=== PATIENT | male | born 1955 | race Caucasian/White ===

== ENCOUNTER → 2018-11-23 06:50 | Outpatient (CLI) | payer BC, SELFPAY ==
--- NOTE | 2018-11-23 06:54 | NM_ITS ---
CARDIOLITE SPECT MYOCARDIAL PERFUSION LEXISCAN, REST AND STRESS: [facility] REVIEW QGS EF AND WALL MOTION EVALUATION: QPS - PERFUSION EVALUATION HISTORY: SOB, HTN, DM, CAD, Hx of NC, Fatigue, Family history DOSE: 9.89 mCi technetium 99m mibi intravenously at rest followed by 32.7 mCi technetium 99m mibi following the intravenous ministration of 0.4 mg of Lexiscan. Resting blood pressure is 189/93. Stress blood pressure 159/85. FINDINGS: Ejection fraction is calculated to be 43%. Next images reveal severely decreased activity throughout the entire lateral wall inferior wall with diminished activity in the anterior wall. Rest images reveal improved activity in the inferior wall and a portion of the apical lateral wall. Gated images calculated ejection fraction of 43% with lateral wall hypokinesis inferior wall hypokinesis apical hypokinesis. IMPRESSION: High risk Myoview suggesting multivessel coronary artery disease with accompanying regional wall motion abnormality as described above
--- NOTE | 2018-11-23 07:41 | HMH.ITSHM ---
Current Home Medications as stated by this patient Rafiq Montesinos or client relations representative. []LEVOFLOXACIN INSULIN GUAIFENESIN VITMAIN D3 CARVEDILOL VITAMIN C ROPINIROLE LOSARTAN LORATADINE IMDUR FUROSEMIDE BENZONATATE ATORVASTATIN ASA ALLOPURINOL
== END ==
PROVIDERS: Visit Provider Physician Assistant
DX: E78.5 Hyperlipidemia, unspecified (principal); I11.9 Hypertensive heart disease without heart failure; I25.10 Atherosclerotic heart disease of native coronary artery without angina pectoris; R06.02 Shortness of breath; R74.8 Abnormal levels of other serum enzymes
CPT/HCPCS: 78452; 93017; A9502; J2785

== ENCOUNTER → 2019-04-25 12:15 | Outpatient (CLI) | payer BC, SELFPAY ==
--- NOTE | 2019-04-25 12:17 | US_ITS ---
APPROVED REPORT Exam Type: Lower Extremity Segmental Pressures Shoe Lay Out Planner: Belkys Alexander RDCS Indications Claudication: Non-healing Ulcer: Rest Pain: Risk Factors Hypertension CAD Hyperlipidemia TIA/CVA History Diabetes History of Smoking Pressures/Indices Right Indices Left Indices Brachial 205.00 mmHg Brachial 235.00 mmHg Low Thigh 230.00 mmHg 0.98 Low Thigh 213.00 mmHg 0.91 Calf 222.00 mmHg 0.94 Calf 247.00 mmHg 1.05 Ankle(PT) 191.00 mmHg 0.81 Ankle(PT) 197.00 mmHg 0.84 Ankle(DP) 222.00 mmHg 0.94 Ankle(DP) 103.00 mmHg 0.44 Digit 166.00 mmHg 0.71 Digit 154.00 mmHg 0.66 Findings R DAVID .8 L DAVID .8 R TBI .7 L TBI .7 PRESSURES REFLECTIVE OF DIABETIC PATIENT Conclusion Mild arterial disease Electronically signed by : Dylon Cristobal MD 04/27/2019 19:51:46
== END ==
PROVIDERS: Visit Provider Internal Medicine
DX: L97.519 Non-pressure chronic ulcer of other part of right foot with unspecified severity (principal)
CPT/HCPCS: 93923

== ENCOUNTER → 2020-11-14 09:08 | Outpatient (CLI) | payer BC, MEDICARE, SELFPAY ==
--- NOTE | 2020-11-14 | CA_ITS ---
APPROVED REPORT EXAM: Comprehensive 2D, Doppler, and color-flow Echocardiogram Food Service Tray Attendant: Tabatha Rojas RT(R) Ht: 5 ft 8 in Wt: 197lbs BSA: 2.03 BP: 152/88 mmHg Indications: SOB, CAD, CKD, COPD, DM, hyperlipidemia, CHF, hx [place] 2D Dimensions LVOT 2.01 cm (M/F) 1.5-2.5 LVEF (Wang's) 41.60 % M: 52 - 72 LV Volume 128.10 mL M: 62 - 150 LV Volume Index 63.10 mL/m2 M: 34 - 74 LA Volume 38.90 mL LA Volume Index 19.16 mL/m2 (M/F) 16-34 M-Mode Dimensions RVDd 2.24 cm (0.9-2.6) LA Diam 3.79 cm (1.9-4.0) LVDd 5.01 cm (3.5-5.7) Ao Diam 2.46 cm (2.0-3.7) LVDs 4.49 cm (3.5-5.7) IVSd 0.88 cm (0.6-1.1) PWd 0.84 cm (0.6-1.1) EF (Teich) 22.60% FS 10.40% EDV (Teich) 118.80 mL ESV (Teich) 92.00 mL LV Diastology E Decel Time 143.00 (160-240 msec) E/A Ratio 2.7 MED E' 4.70 (< 7 cm/sec) E'/MED E' Ratio 26.64 (>14) LAT E' 5.20 (<10 cm/sec) E/LAT E' Ratio 24.08 (>14) Aortic Valve LVOT Max 92.00 (70-110 cm/s) LVOT VTI 17.48 cm AoV Peak Esequiel. 150.00 (50-130 cm/s) AO Peak GR. 9.00 mmHg AO Mean GR. 4.40 (<5 mmHg) AO VTI 24.00 (18-25 cm) JOYCE (VTI) 2.31 (2.5-4.5 cm2) Mitral Valve MV E Max Esequiel. 125.00 (40-130 cm/s) MV A Velocity 47.00 (40-130 cm/s) E/A Ratio 2.66 MV Decel. Time 143.00 (160-240 ms) MV PHT 42.00 ms Left Ventricle Technically difficult study because of the patient factors and poor acoustic windows. Left atrium is mildly enlarged, left ventricle is normal size, mild ventricular hypertrophy, visually estimated ejection fraction 40 to 45%, left ventricle is globally hypokinetic. Endocardial surfaces are poorly visualized. Grade 2 diastolic dysfunction seen with tissue Doppler evidence of raise left atrial pressure. Right Ventricle Right atrium and right ventricle are mildly enlarged with normal contractility. Aortic Valve Aortic valve is thickened and calcified without Doppler evidence of aortic stenosis or aortic insufficiency. Mitral Valve Mitral valve leaflets are minimally thickened, there is mild mitral regurgitation. Tricuspid Valve Tricuspid valve grossly normal, there is mild tricuspid regurgitation, tricuspid regurgitation jet velocity is inadequate for calculation of the right ventricular systolic pressure. Pulmonic Valve Pulmonic valve is poorly visualized. Great Vessels Aortic root is normal size. Pericardium No significant pericardial effusion noted. Conclusion 1. Technically difficult study because of the patient factors and poor acoustic windows. Mild biatrial abdomen, normal left ventricular size, mild concentric left ventricular hypertrophy, visually estimated ejection fraction 40 to 45%, grade 2 diastolic dysfunction seen with tissue Doppler evidence of raise left atrial pressure. 2. Thickened and calcified aortic valve without Doppler evidence of aortic stenosis or aortic insufficiency. 3. Mild mitral and tricuspid regurgitation. 4. No significant pericardial effusion noted. Electronically signed by : Hima Daniels, 11/15/2020 15:20:12
== END ==
PROVIDERS: PCP Nurse Practitioner Family; Visit Provider Nurse Practitioner Family
DX: R06.02 Shortness of breath (principal)
CPT/HCPCS: 93306

== ENCOUNTER → 2021-03-26 16:03 | Outpatient (CLI) | payer BC, SELFPAY ==
[2021-03-26 16:58] LABS: Basophils % 0.4 % (0.1-2.0); Eosinophils # 0.1 K/mm3 (0.0-0.4); Eosinophils % 1.2 % (0.1-12.0); Hematocrit 40.4 % (42.0-52.0); Hemoglobin 12.6 g/dL (14.1-18.0); Lymphocytes % 9.5 % (10-50); Mean Corpuscular HGB Conc 31.1 g/dL (31.8-35.4); Mean Corpuscular Hemoglobin 24.8 pg (27.0-31.2); Mean Corpuscular Volume 79.7 fl (80-94); Mean Platelet Volume 7.1 fl (7.4-10.4); Monocytes # 0.6 K/mm3 (0.1-1.0); Monocytes % 5.7 % (1.7-9.3); Neutrophils # 8.3 K/mm3 (1.8-7.8); Neutrophils % 83.1 % (37.0-80.0); Platelet Count 258 K/mm3 (142-424); Red Blood Count 5.07 M/mm3 (4.60-6.20); Red Cell Distribution Width 16.9 % (11.5-17.5)
[2021-03-26 18:48] LABS: Anion Gap 18.2 mEq/L (5-15); Calcium 7.9 mg/dl (8.4-10.2); Carbon Dioxide 25 mmol/L (22.0-30.0); Chloride 99 mmol/L (98-107); Estimated Glomerular Filt Rate 14 ml/min (>60); GFR (African American) 17 ML/MIN (>60); Glucose 249 mg/dl (74-100); Potassium 5.2 mmoL/L (3.5-5.1); Sodium 137 mmol/L (136-145)
[2021-03-26 18:59] LABS: Blood Urea Nitrogen 78 mg/dl (9-20)
== END ==
PROVIDERS: Urology; Visit Provider Internal Medicine
DX: Z01.812 Encounter for preprocedural laboratory examination (principal); Z20.822 Contact with and (suspected) exposure to COVID-19; R06.02 Shortness of breath; R07.9 Chest pain, unspecified; I25.10 Atherosclerotic heart disease of native coronary artery without angina pectoris; I11.9 Hypertensive heart disease without heart failure; I42.9 Cardiomyopathy, unspecified; I50.9 Heart failure, unspecified; E11.9 Type 2 diabetes mellitus without complications; E78.5 Hyperlipidemia, unspecified; J44.9 Chronic obstructive pulmonary disease, unspecified; N18.9 Chronic kidney disease, unspecified; Z79.4 Long term (current) use of insulin
CPT/HCPCS: 36415; 80048; 85025; U0003

== ENCOUNTER 2021-03-27 09:35 | Day surgery (SDC) | payer BC, SELFPAY ==
[2021-03-27] VITALS (14 sets, daily range): BP systolic 121–195; BP diastolic 60–100; PULSE 63–82; RESP 13–18; TEMP 36.8; O2SAT 90–98; BMI 30.4
--- NOTE | 2021-03-27 | IR_ITS ---
APPROVED REPORT Patient Location: Outpatient Commanding Officer Traffic Division: HELEN Aceves RT (R) PROCEDURES Right heart catheterization Left heart catheterization Left ventriculogram Selective coronary angiogram INDICATION Chronic renal failure, History of hemodialysis, Worsening dyspnea, Worsening angina pectoris, Known coronary artery disease, Pulmonary hypertension Informed consent was obtained prior to the procedure. COMPLICATIONS NONE Estimated Blood Loss: LESS THAN 10 ML TECHNIQUE One percent lidocaine was used to anesthetize the right anterior aspect of the right wrist. The right radial artery was accessed via the Seldinger technique and a 6 [place] hydrophilic sheath was placed in the right radial artery. Following this one percent lidocaine was used to anesthetize the right anterior aspect of the right neck. The right internal jugular vein was accessed via the Seldinger technique and a 7 [place] sheath was placed in the right internal jugular vein. Following this an arterial cocktail was administered using 5000U heparin, 2.5 mg verapamil, 1mg Lidocaine and 800mcg nitroglycerin into the right radial sheath. A trap catheter was used to perform left heart catheterization left ventriculogram and selective coronary angiography while a Cantil-Mykel catheter was used to perform right heart catheterization. Saturations were obtained in the pulmonary artery and right atrium. At the end of the procedure the arterial sheath was removed good hemostasis was achieved using Traclet band. Patient was transferred to the postop holding area in stable condition for venous sheath removal. ANGIOGRAPHIC RESULTS The left main artery Normal The left anterior descending artery Is widely patent in the ostial segment extending into the large first diagonal artery. In between the first diagonal artery and first septal marketing professional the LAD does narrow which is smooth and a 40% stenosis. The remaining LAD opens into a large caliber vessel which then wraps the apex. The first diagonal artery is also a large vessel and is widely patent with smooth proximal 20% stenosis The circumflex artery Is a nondominant vessel and has a stent in the proximal to mid segment. In the midportion of the circumflex artery the vessel was subtotally occluded The right coronary artery Is a dominant vessel and has proximal to mid vessel 30% diffuse smooth stenoses. The posterior descending artery is less than 2 mm in diameter and has mid vessel 60 and 70% concentric stenoses. The posterior lateral branch is a larger vessel and has a mid vessel 50% stenosis in an area less than 2 mm The COTA ventriculogram reveals Slightly dilated ejection fraction 50% The left ventricular end-diastolic pressure 32 mmHg Right atrial pressure 20 mmHg Pulmonary pressure 70/35 mmHg Pulmonary occlusion pressure 30 mmHg Right atrial saturation 67% Pulmonary saturation 63% IMPRESSION Severe pulmonary hypertension Biventricular congestive heart failure as evidenced by elevated left-sided filling pressures pulmonary artery pressure and elevated right-sided pressures Interval loss of a nondominant circumflex artery due to in-stent restenosis Moderate disease in the LAD as described above which appears to be nonflow limiting and is unchanged from the heart cath in 2019 Moderate moderate disease in the right coronary which is unchanged Dilated ventricle almost certainly from left-sided heart failure most likely stemming from renal failure PLAN 1. I recommend patient undergo dialysis 2. Prior to dialysis diuretics will be increased in order to remove fluid and lower intracardial pulmonary filling pressures 3. Continue medical management for coronary disease
== END 2021-03-27 15:14 | disposition home or self-care (01) ==
PROVIDERS: PCP Nurse Practitioner Family; Visit Provider Internal Medicine
DX: I27.20 Pulmonary hypertension, unspecified (principal); I50.82 Biventricular heart failure; E11.22 Type 2 diabetes mellitus with diabetic chronic kidney disease; Z79.4 Long term (current) use of insulin; I13.0 Hypertensive heart and chronic kidney disease with heart failure and stage 1 through stage 4 chronic kidney disease, or unspecified chronic kidney disease; I50.33 Acute on chronic diastolic (congestive) heart failure; I25.118 Atherosclerotic heart disease of native coronary artery with other forms of angina pectoris; J44.9 Chronic obstructive pulmonary disease, unspecified; I25.2 Old myocardial infarction; Z95.5 Presence of coronary angioplasty implant and graft; Z79.899 Other long term (current) drug therapy; Z88.8 Allergy status to other drugs, medicaments and biological substances; N18.9 Chronic kidney disease, unspecified; T82.855A Stenosis of coronary artery stent, initial encounter; Y83.1 Surgical operation with implant of artificial internal device as the cause of abnormal reaction of the patient, or of later complication, without mention of misadventure at the time of the procedure
CPT/HCPCS: 93460; 99152; 99153; C1725; C1769; C1894; J1644; Q9967

== ENCOUNTER → 2021-04-01 10:26 | Outpatient (CLI) | payer BC, SELFPAY ==
[2021-04-01 10:59] LABS: Basophils # 0.1 K/mm3 (0-0.2); Basophils % 0.6 % (0.1-2.0); Eosinophils # 0.2 K/mm3 (0.0-0.4); Eosinophils % 2.2 % (0.1-12.0); Hematocrit 41.3 % (42.0-52.0); Hemoglobin 12.4 g/dL (14.1-18.0); Lymphocytes # 1.1 K/mm3 (0.7-4.5); Lymphocytes % 10.6 % (10-50); Mean Corpuscular HGB Conc 30.1 g/dL (31.8-35.4); Mean Corpuscular Hemoglobin 23.7 pg (27.0-31.2); Mean Corpuscular Volume 78.9 fl (80-94); Mean Platelet Volume 7.9 fl (7.4-10.4); Monocytes # 0.7 K/mm3 (0.1-1.0); Monocytes % 6.5 % (1.7-9.3); Neutrophils # 8.1 K/mm3 (1.8-7.8); Neutrophils % 80.1 % (37.0-80.0); Platelet Count 268 K/mm3 (142-424); Red Blood Count 5.23 M/mm3 (4.60-6.20); Red Cell Distribution Width 16.7 % (11.5-17.5); White Blood Count 10.1 K/mm3 (4.8-10.8)
[2021-04-01 12:09] LABS: Blood Urea Nitrogen 74 mg/dl (9-20); Calcium 8.4 mg/dl (8.4-10.2); Estimated Glomerular Filt Rate 15 ml/min (>60); GFR (African American) 18 ML/MIN (>60); Glucose 101 mg/dl (74-100); Potassium 5.8 mmoL/L (3.5-5.1)
[2021-04-01 12:24] LABS: Anion Gap 20.8 mEq/L (5-15); Carbon Dioxide 23 mmol/L (22.0-30.0); Chloride 99 mmol/L (98-107); Sodium 137 mmol/L (136-145)
== END ==
PROVIDERS: Internal Medicine; Visit Provider Urology
DX: I11.0 Hypertensive heart disease with heart failure (principal)
CPT/HCPCS: 36415; 80048; 85025